=== PATIENT | male | born 1960 | race Caucasian/White ===

== ENCOUNTER 2021-03-07 16:37 | Emergency (ER) | payer OTHER ==
[~2021-03-07 16:37] MED LIST: TRAMADOL HCL50 MG PO; ZOFRAN4 MG PO
[2021-03-07] MEDS ORDERED: CEPHALEXIN500 MG PO (17:59)
== END 2021-03-07 18:22 | disposition home or self-care (01) ==
LOC: FER 16:37
DX: S61.212A Laceration without foreign body of right middle finger without damage to nail, initial encounter (principal); E11.9 Type 2 diabetes mellitus without complications; I10 Essential (primary) hypertension; J44.9 Chronic obstructive pulmonary disease, unspecified; W26.8XXA Contact with other sharp object(s), not elsewhere classified, initial encounter; Y92.009 Unspecified place in unspecified non-institutional (private) residence as the place of occurrence of the external cause